=== PATIENT | female | born 1990 ===

== ENCOUNTER 2017-04-16 06:52 | Emergency (ER) | payer MEDICAID, OTHER ==
[2017-04-16 06:53] VITALS: BMI 28.0
[2017-04-16 06:59] VITALS: RESP 18; TEMP 98.8
--- NOTE | 2017-04-16 07:06 | ED PDOC ---
Arrival/HPI - General Chief Complaint: Female Genitourinary Time Seen by Provider: 04/16/17 07:00 Historian: Patient, Other (Boyfriend) - History of Present Illness Time/Duration: Other (3 days) Symptom Course: Unchanged Severity Level: Mild Activities at Onset: Rest Associated Symptoms (Text): 04/16/17 07:07 Patient complains of a three-day history of vaginal spotting. Patient has some blood on the paper when she wipes. There is no abdominal pain nausea vomiting or diarrhea. No dysuria frequency urgency or hematuria. No low back pain. No cramps. No fever or chills. She reports her LMP was 2 or 3 weeks ago. 2 para 1 1. Past Medical History - Past History Past History: No Previous - Infectious Disease Hx of Infectious Diseases: None - Tetanus Immunization Tetanus Immunization: Unknown - Reproductive Menopause: No - Past Medical History Past Medical History: No Previous - Pulmonary Hx Asthma: Yes - Psychiatric Hx Anxiety: No Hx Bipolar Disorder: No Hx Depression: No Hx Post Traumatic Stress Disorder: No Hx Schizophrenia: No Hx Substance Use: No - Surgical History Hx Section: Yes (x1) - Anesthesia Hx Anesthesia: Yes Hx Anesthesia Reactions: No Hx Malignant Hyperthermia: No - Suicidal Assessment Feels Threatened In Home Enviroment: No Family/Social History - Physician Review Nursing Documentation Reviewed: Yes Family/Social History: Unknown Family HX Smoking Status: Never Smoked Hx Alcohol Use: No Hx Substance Use: No Hx Substance Use Treatment: No Allergies/Home Meds Allergies/Adverse Reactions: Allergies No Known Allergies Allergy (Verified 09/18/14 01:44) Home Medications: Home Meds Medication Instructions Recorded Confirmed No Known Home Med 04/16/17 04/16/17 Review of Systems - Physician Review All systems were reviewed & negative as marked: Yes - Review of Systems Constitutional: Normal Cardiovascular: Normal Gastrointestinal: Normal. absent: Abdominal Pain, Constipation, Diarrhea, Nausea, Vomiting, Anorexia Genitourinary Female: Vaginal Bleeding. absent: Dysuria, Frequency, Hematuria, Vaginal Discharge Neurological: Normal Physical Exam Vital Signs Temp Pulse Resp BP Pulse Ox 04/16/17 06:59 98.8 F 106 H 18 137/65 100 Temperature: Afebrile Blood Pressure: Normal Pulse: Regular Respiratory Rate: Normal Appearance: Positive for: Well-Appearing, Non-Toxic, Comfortable Pain Distress: None Mental Status: Positive for: Alert and Oriented X 3 - Systems Exam Head: Present: Atraumatic, Normocephalic Pupils: Present: PERRL Extroacular Muscles: Present: EOMI Conjunctiva: Present: Normal Respiratory/Chest: Present: Clear to Auscultation, Good Air Exchange. No: Respiratory Distress, Accessory Muscle Use Cardiovascular: Present: Regular Rate and Rhythm, Normal S1, S2. No: Murmurs Abdomen: Present: Normal Bowel Sounds. No: Tenderness, Distention, Peritoneal Signs, Rebound, Guarding Back: Present: Normal Inspection. No: CVA Tenderness Neurological: Present: GCS=15, CN II-XII Intact, Speech Normal, Motor Func Grossly Intact Skin: Present: Warm, Dry, Normal Color. No: Rashes Psychiatric: Present: Alert, Oriented x 3, Normal Insight, Normal Concentration Medical Decision Making ED Course and Treatment: 04/16/17 08:09 HCG is negative. Patient does have some hematuria. She has no urinary tract symptoms. A urine culture has been obtained. Discussed with patient that we will call if positive. Possible early menstrual cycle. Discharge home accompanied by boyfriend. Follow-up PMD. Follow up in ER as needed. - Lab Interpretations Lab Results: Lab Results 04/16/17 07:34: Urine Color Yellow, Urine Appearance Clear, Urine pH 6.0, Ur Specific [place] >= 1.030, Urine Protein Negative, Urine Glucose (UA) Negative, Urine Ketones Negative, Urine Blood Large H, Urine Nitrate Negative, Urine Bilirubin Negative, Urine Urobilinogen 0.2, Ur Leukocyte Esterase Negative, Urine RBC 20 - 25, Urine WBC 1 - 3, Ur Epithelial Cells Many, Amorphous Sediment Few, Urine Bacteria Many Disposition/Present on Arrival - Present on Arrival Any Indicators Present on Arrival: No History of DVT/PE: No History of Uncontrolled Diabetes: No Urinary Catheter: No History of Decub. Ulcer: No History Surgical Site Infection Following: Obstetrical/Gynecological Surgery - Disposition Have Diagnosis and Disposition been Completed?: Yes Diagnosis: DUB (dysfunctional uterine bleeding), Hematuria Disposition: HOME/ ROUTINE Disposition Time: 08:10 Patient Plan: Discharge Condition: GOOD Discharge Instructions (ExitCare): Acute Hematuria (ED), Dysfunctional Uterine Bleeding (ED) Forms: [employer] (Tuvaluan)
[2017-04-16 07:38] LABS: URINE BILIRUBIN NEGATIVE (NEGATIVE); URINE BLOOD LARGE (NEGATIVE); URINE GLUCOSE (UA) NEGATIVE (NEGATIVE); URINE KETONE NEGATIVE (NEGATIVE); URINE LEUKOCYTE ESTERASE NEGATIVE Leu/uL (NEGATIVE); URINE PROTEIN NEGATIVE mg/dL (<30 mg/dL); URINE UROBILINOGEN 0.2 E.U./dL (<1 E.U./dL)
[2017-04-16 07:52] LABS: URINE APPEARANCE CLEAR (CLEAR); URINE COLOR YELLOW (YELLOW)
[2017-04-16 07:54] LABS: URINE EPITHELIAL CELLS MANY /hpf (0-5); URINE RBC 20 - 25 /hpf (0-2)
[2017-04-16 07:55] LABS: URINE AMORPHOUS SEDIMENT FEW; URINE BACTERIA MANY (NEG)
[2017-04-16 08:25] VITALS: BP 121/69; PULSE 82; O2SAT 99
== END 2017-04-16 08:26 | disposition home or self-care (01) ==
LOC: ED 06:52
DX: N93.8 Other specified abnormal uterine and vaginal bleeding (principal); R31.9 Hematuria, unspecified

== ENCOUNTER 2017-08-30 04:08 | Emergency (ER) | payer OTHER ==
[2017-08-30 04:09] VITALS: BMI 28.0
[2017-08-30 04:26] VITALS: BP 131/53; PULSE 102; RESP 18; TEMP 98.3; O2SAT 100
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
== END 2017-08-30 06:59 | disposition home or self-care (01) ==
LOC: ED 04:08
DX: S01.01XA Laceration without foreign body of scalp, initial encounter (principal); Y04.8XXA Assault by other bodily force, initial encounter